=== PATIENT | female | born 1955 | race Caucasian/White ===

== ENCOUNTER 2016-08-21 06:12 | Emergency (ER) | payer OTHER ==
[~2016-08-21] VITALS: Ht 162.6 cm; Wt 58.1 kg
--- NOTE | 2016-08-21 07:13 | ED ANIMAL BITE/WOUND CHECK ---
History of Present Illness General Chief Complaint: Animal/Insect Bite Stated Complaint: TICK ON RIGHT SHOULDER Source: patient, family Exam Limitations: no limitations Vital Signs & Intake/Output Vital Signs & Intake/Output Vital Signs Date Time Temp Pulse Resp B/P B/P Pulse O2 O2 Flow FiO2 Mean Ox Delivery Rate 08/21 616 97.0 70 18 135/88 99 Room Air Allergies Coded Allergies: aspirin (From FIORINAL) ("one red minesh on my skin" denies hives 08/21/16) butalbital (From FIORINAL) ("one red minesh on my skin" denies hives 08/21/16) caffeine (From FIORINAL) ("one red minesh on my skin" denies hives 08/21/16) Triage Note: PT TO ED FOR "TICK EMBEDDED IN R SHOULDER, HALF CAME OUT THE OTHER HALF DIDNT." PT REQUESTING ABX. "I'M GOING [place] OF THE COUNTRY ON [place]" Triage Nurses Notes Reviewed? yes HPI: Patient noticed a tick in her right upper arm this morning. Patient is unsure how long the tick had been on however it was still flat. Her was able to pull the tick with a pair of tweezers however the head is from the body and the head remained embedded. Patient presents for evaluation. Patient denies any pain. There is no fevers or chills. Patient is concerned because she is given for [place] and in 2 weeks. Past History Travel History Traveled to [place] past 21 day No Medical History Any Pertinent Medical History? see below for history Neurological: NONE EENT: NONE Cardiovascular: hypertension Respiratory: NONE Gastrointestinal: NONE Hepatic: NONE Renal: NONE Musculoskeletal: NONE Psychiatric: NONE Endocrine: hypothyroidism Surgical History Surgical History: non-contributory Psychosocial History What is your primary language Hungarian Tobacco Use: Never used ETOH Use: occasional use Illicit Drug Use: denies illicit drug use Family History Hx Contributory? No Review of Systems Review of Systems Constitutional: Reports: no symptoms. Respiratory: Reports: no symptoms. Cardiovascular: Reports: no symptoms. GI: Reports: no symptoms. Musculoskeletal: Reports: no symptoms. Skin: Reports: see HPI. Neurological/Psychological: Reports: no symptoms. Immunologic/Allergic: Reports: no symptoms. Physical Exam Physical Exam General Appearance: well developed/nourished, alert, awake, anxious, mild distress Eyes: Bilateral: PERRL, EOMI. Neck: normal inspection, supple, full range of motion Respiratory: normal breath sounds, chest non-tender, no respiratory distress, lungs clear Cardiovascular: regular rate/rhythm, normal peripheral pulses Gastrointestinal: normal bowel sounds, soft, non-tender, no organomegaly Extremities: TICK HEAD IMBEDDED IN RUE Neurologic/Psych: no motor/sensory deficits, awake, alert, oriented x 3, normal gait, normal mood/affect Lymphatic: no anterior cervical lluvia Progress Differential Diagnosis: TICK BITE Plan of Care: Current Medications Sig/Niru Start time Last Medication Dose Stop Time Status Admin Ondansetron HCl 4 MG ONCE ONE 08/21 699 CAN (Zofran) 08/21 700 Departure Departure Disposition: HOME OR SELF CARE Condition: Stable Clinical Impression Primary Impression: Tick bite Qualifiers: Encounter type: initial encounter Qualified Code: W57.XXXA - Bitten or stung by nonvenomous insect and other nonvenomous arthropods, initial encounter Referrals: DAVID WALSH MD (PCP/Family) Additional Instructions: RETURN FOR ANY CONCERNS Departure Forms: Customer Survey General Discharge Information Procedures Additional Procedures Additional Procedures: TICK HEAD REMOVAL 1% LIDO, 1ML TICK HEAD REMOVED WITH TWEEZERS PTPW
[2016-08-21 07:42] VITALS: BP 130/80
== END 2016-08-21 07:42 ==
LOC: ERH 06:12
DX: S40.261A Insect bite (nonvenomous) of right shoulder, initial encounter (principal); W57.XXXA Bitten or stung by nonvenomous insect and other nonvenomous arthropods, initial encounter; Y93.9 Activity, unspecified; Y92.9 Unspecified place or not applicable